=== PATIENT | male | born 1985 ===

== ENCOUNTER 2018-01-23 23:04 | Emergency (ER) | payer SELFPAY ==
[2018-01-23 23:15] VITALS: BP 105/64; PULSE 72; RESP 18; TEMP 98; O2SAT 98
[2018-01-24] MEDS ORDERED: Amoxicillin-Clav 875-125 mg Tab PO ONE (14:47)
[2018-01-24] MEDS ORDERED: Tetanus/Diphtheria Toxoids 0.5 ml Syringe IM ONE (14:48)
== END 2018-01-23 23:17 | disposition left against medical advice (07) ==
LOC: C.ER 23:04
DX: Z02.89 Encounter for other administrative examinations (principal); F19.10 Other psychoactive substance abuse, uncomplicated